=== PATIENT | female | born 1995 | race Caucasian/White ===

== ENCOUNTER 2017-04-16 19:38 | Emergency (ER) | payer OTHER ==
[2017-04-16 20:29] LABS: APPEARANCE, URINE CLOUDY (CLEAR); BACTERIA, URINE AUTO 1+ (NEGATIVE); BILIRUBIN, URINE AUTO NEGATIVE (NEGATIVE); BLOOD, URINE BLOOD NEGATIVE (NEGATIVE); COLOR, URINE YELLOW (YELLOW); GLUCOSE, URINE (UA) AUTO NEGATIVE (NEGATIVE); KETONE, URINE AUTO NEGATIVE (NEGATIVE); LEUKOCYTE ESTERASE, URINE AUTO 3+ (NEGATIVE); MUCUS, URINE SMALL (NEGATIVE); NITRITE, URINE AUTO NEGATIVE (NEGATIVE); PROTEIN, URINE AUTO NEGATIVE (NEGATIVE); RBC, URINE AUTO 7 /HPF (0-3); SPECIFIC GRAVITY URINE AUTO 1.024 (1.002-1.035); SQUAMOUS EPITHELIAL CELL UR AU 4 /HPF (0-6); TRANSITIONAL EPITHELIAL AUTO <1 /HPF; WBC, URINE AUTO TNTC /HPF (0-3)
[2017-04-16 21:07] LABS: CONTROL LINE UCG INT CTR LINE PRESENT; URINE PREG TEST NEGATIVE (NEGATIVE)
[2017-04-16] MEDS: PHENAZOPYRIDINE 100 MG TAB PO (21:15)
[2017-04-16] MEDS: NITROFURANTOIN (MACROBID) 100 MG CAP PO (21:15)
== END 2017-04-16 21:34 | disposition home or self-care (01) ==
LOC: M ED 19:38
DX: N39.0 Urinary tract infection, site not specified (principal); F17.201 Nicotine dependence, unspecified, in remission
CPT/HCPCS: 84703